=== PATIENT | male | born 1950 | race Caucasian/White ===

== ENCOUNTER → 2017-02-06 | Outpatient (CLI) | payer OTHER | LOC: BMCIMAGING 15:52 | PROVIDERS: ATTEND Podiatrist Foot & Ankle Surgery | DX: S99.911A Unspecified injury of right ankle, initial encounter (principal) ==

== ENCOUNTER → 2017-07-22 | Outpatient (CLI) | payer OTHER, MEDICARE | LOC: BMCIMAGING 09:00 | PROVIDERS: ATTEND Podiatrist Foot & Ankle Surgery | DX: M19.071 Primary osteoarthritis, right ankle and foot (principal); M21.071 Valgus deformity, not elsewhere classified, right ankle ==

== ENCOUNTER → 2017-11-28 | Outpatient (CLI) | payer OTHER, MEDICARE | LOC: BMCIMAGING 16:23 | PROVIDERS: ATTEND Emergency Medicine | DX: M79.89 Other specified soft tissue disorders (principal) ==

== ENCOUNTER → 2018-12-08 | Outpatient (CLI) | payer OTHER, MEDICARE | LOC: BMCIMAGING 09:16 | PROVIDERS: ATTEND Physician Assistant | DX: M25.552 Pain in left hip (principal); M51.36 Other intervertebral disc degeneration, lumbar region ==